=== PATIENT | female | born 1940 | race Caucasian/White ===

== ENCOUNTER 2024-02-09 07:24 | Day surgery (SDC) | payer OTHER, SELFPAY ==
[2024-02-09] VITALS (22 sets, daily range): BP systolic 131–184; BP diastolic 49–79; BMI 27.3
[2024-02-09] MEDS: LOW STRENGTH ASPIRIN 81 MG PO (08:53)
[2024-02-09] MEDS: NSS 230 ML IV (08:54)
--- NOTE | 2024-02-09 10:02 | ITS.CL.CATH ---
Hot Room Attendant - Catheterization
Cardiac Catheterization
Procedure Report:
CARDIAC CATHETERIZATION REPORT
Date of Procedure: 02/09/2024
Referring: Pedro Garcia MD
Indication: Severe symptomatic aortic stenosis
HEMODYNAMIC DATA
AO: 168/61
LV: 184/28
There is a 36 mmHg mean gradient across the aortic valve
LEFT VENTRICULOGRAPHY: Not performed
CORONARY ANGIOGRAPHY
Dominance: Right
Left Main: Mild calcification without stenosis
LAD: Trivial luminal irregularities
Circumflex: Trivial luminal irregularities
RCA: The RCA has moderate to severe calcification. There is 60-70% ostial RCA stenosis without pressure dampening. There are otherwise mild luminal irregularities in the RCA system
Closure Device: None-manual compression was used for hemostasis as the patient will require TAVR
Radiation (mGy): 94
DAP (cm2.Gy): 9.6
Fluoroscopy time: 4.1 minutes
CONCLUSIONS
1: Systemic hypertension
2: Moderate to severe aortic stenosis with mean gradient 36 mmHg
3. Single-vessel CAD as described-recommend medical therapy at this time
4. Proceed with TAVR evaluation
Copy to: Pedro Garcia MD, Chadwick Grant DO
Kush Sommer MD, [facility], [facility]
--- NOTE | 2024-02-09 13:28 | CONSULT.STRU ---
Consultation
-
Date/Time Consultation Requested: 02/09/2024
Date/Time Consultation Performed: 02/09/2024
Requesting Provider: Kush Sommer MD
Performing Provider: JESSICA Miranda
Reason for Consultation: Severe aortic stenosis/ TAVR evaluation
Patient History
Physicians
Family Physician: Chadwick Grant DO
Outpatient Caterpillar Mechanic: Pedro Garcia MD
Primary Caterpillar Mechanic: Pedro Garcia MD
History of Present Illness
Mrs. Whitmore is a very pleasant 83yo female with ESRD and severe aortic stenosis that underwent cardiac catheterization today. She has a history of a pericardial window December 15, 2023, history of PAF although not anticoagulated, HTN, anemia, gout and
hypothyroidism. She has been having trouble achieving dry weight at hemodialysis because of hypotension. She does note some fatigue and BARROW over the past few months. She denies peripheral edema, syncope or lightheadedness. She denies chest pain, PND
and orthopnea. She does complain of occasional palpitations. She has dialysis Tue-Tue-Tue at [facility]. She is followed by Dr. Bautista. Her echocardiogram on 01/12/2024 was notable for AV P MG 40 and ALFONSO 0.9. Moderate MAC and mild
MR. Her cardiac cath with non-obstructive CAD.
Reviewed the pathophysiology of aortic stenosis with the patient and her daughter. Explained the treatment options of SAVR and TAVR. Explained the TAVR evaluation process including CT TAVR scan, CT surgery consult and Heart Team discussion. Provided
with script and appointment for CT TAVR, Consult appointment with Dr. Frye and a copy of the TAVR education booklet with contact information. Allowed for and answered questions.
Past Medical History
Past Medical History: Atrial Fib (h/o PAF, states she was told she no longer has, no anticoagulation), BARROW, HTN, Hypothyroidism, Renal Failure (ESRD- Hemodialysis M-W-F, Polycystic kidney disease), Valvular Disease (Aortic Stenosis, moderate AI,
mild MR, trivial TR) and Other (Hiatal Hernia, gout)
Past Surgical History
Past Surgical History: Appendectomy, Cholecystectomy, Hysterectomy and Other (tubal ligation, pericardial window 11/2023, Right upper arm AV graft)
Dental History
Full Dentures
Family History
Mother: at Age
Father: at Age (78, CAD)
Family Medical History: Early CAD (Brother had MS at 57yo)
Social History
Alcohol: None
Drug: None
Tobacco: Former Smoker (Quit 1987)
Personal:
Living: Alone
Employment: Retired
Allergies
Allergy/AdvReac Type Severity Reaction Status Date / Time
amlodipine Allergy Unknown upset Verified 02/09/24 08:24
stomach
Home Medications
�Medication �Instructions �Recorded �Confirmed �Type
allopurinol 200 mg tablet 200 mg PO BID 02/09/24 02/09/24 History
aspirin 81 mg chewable tablet 81 mg PO DAILY 02/09/24 02/09/24 History
atorvastatin 10 mg tablet 10 mg PO HS 02/09/24 02/09/24 History
furosemide 20 mg tablet 20 mg PO BID 02/09/24 02/09/24 History
hydralazine 25 mg tablet 75 mg PO TID 02/09/24 02/09/24 History
levothyroxine 125 mcg tablet 125 mcg PO DAILY 02/09/24 02/09/24 History
(Synthroid)
loperamide 2 mg capsule 2 mg PO Q4H PRN stomach issues 02/09/24 02/09/24 History
metoprolol tartrate 50 mg tablet 50 mg PO BID 02/09/24 02/09/24 History
sucroferric oxyhydroxide 500 mg 500 mg PO TID 02/09/24 02/09/24 History
chewable tablet (Velphoro)
STS%
STS %: 7.47%
Review of Systems
-
History Source: Patient and Family
General: Reports Fatigue; Denies Fever, Weight Gain or Night Sweats
HEENT: Reports No Symptoms
Respiratory: Reports BARROW
Cardiac: Reports Palpitations; Denies Chest Pain, Nausea, Vomiting, Diaphoresis or Edema
Abdomen/GI: Reports Diarrhea (chronic, diverticulosis); Denies Reflux, Nausea or Vomiting
: Reports Other (ESRD, voids small amount in morning but then anuric)
Musculoskeletal: Reports No Symptoms
Skin: Reports No Symptoms
Neurological: Reports No Symptoms; Denies CVA or TIA
Vascular: Reports No Symptoms
Physical Exam
Vital Signs
Temp 97.8 F 02/09/24 13:20
Temp route: Oral 02/09/24 13:20
Pulse 58 02/09/24 13:15
Resp Rate 18 02/09/24 13:15
Blood pressure 156/73 02/09/24 13:17
Blood pressure extremity used: Left upper arm 02/09/24 08:00
Position: Lying 02/09/24 08:00
MAP (cuff-Kermit Monitor) 96 02/09/24 13:17
SaO2 98 02/09/24 13:09
Oxygen Mode of Delivery Room air 02/09/24 10:00
Can the patient verbally communicate their pain? Yes 02/09/24 13:20
Actual Weight 76.8 kg 02/09/24 08:27
Body Mass Index (BMI) 27.3 02/09/24 08:27
Labs
02/03/2024:
BUN/Creat: 21/3.92 GFR: 11
H/H: 11.2/ 34.1
Diagnostic Studies
Echocardiogram 01/12/2024:
CONCLUSIONS
1. There is mild concentric LVH. Normal LV function. EF 65 to 70% with grade
1 diastolic dysfunction
2. Severe aortic stenosis with mild to moderate aortic insufficiency
3. Trivial pericardial effusion
4. Left atrium is top normal in size and other chamber sizes are normal
Indications:
Nonrheumatic aortic (valve) stenosis with insufficiency, Essential (primary)
hypertension, Shortness of breath
Rhythm: Sinus
Portable Study:
Technical Quality: Good
Contrast: None
BP: 140 / 84
PROCEDURE
A complete Transthoracic Echocardiogram was performed utilizing two-dimensional
evaluation with color flow and spectral Doppler analysis.
FINDINGS
Left Ventricle
The left ventricle is normal in size. There is mild concentric LVH. Left
ventricular systolic function is normal with an estimated ejection fraction of
65 to 70%. There is grade 1 diastolic dysfunction.
Right Ventricle
Normal right ventricular size and function.
Left Atrium
The left atrium is top normal in size
Right Atrium
Normal right atrium.
Mitral Valve
Structurally normal mitral valve without significant stenosis. There is
trivial to mild mitral regurgitation. There is moderate mitral annular
calcification
Aortic Valve
The aortic valve is heavily thickened and calcified with a deformed and
restricted opening consistent with the presence of aortic stenosis. The peak
transaortic gradient is 64 mmHg and the mean gradient is 40 mmHg. Calculated
valve area 0.9 cm2 suggesting the presence of severe aortic stenosis. There is
mild to moderate aortic insufficiency
Tricuspid Valve
Structurally normal tricuspid valve without significant stenosis. There is
trivial tricuspid regurgitation. Estimated pulmonary artery pressure is 29
mmHg.
Pulmonic Valve
Structurally normal pulmonic valve without significant stenosis or
regurgitation.
Pericardium\\Pleura
There is a trivial circumferential pericardial effusion present
Aorta
Normal aortic root.
Other Finding
The inferior vena cava is normal in size
MEASUREMENTS (Male / Female) Normal Values
2D ECHO
LV Diastolic Diameter PLAX 4.3 cm 4.2 - 5.9 / 3.9 - 5.3 cm
LV Systolic Diameter PLAX 3.1 cm
IVS Diastolic Thickness 1.3 cm 0.6 - 1.0 / 0.6 - 0.9 cm
LVPW Diastolic Thickness 1.2 cm 0.6 - 1.0 / 0.6 - 0.9 cm
LV Relative Wall Thickness 0.6
RV Internal Dim ED PLAX 2.9 cm
LVOT Diameter 2.0 cm
M-MODE
Aortic Root Diameter MM 2.9 cm
LA Systolic Diameter MM 4.0 cm
LA Ao Ratio MM 1.4
AV Cusp Separation MM 1.2 cm
DOPPLER
AV Peak Velocity 401.5 cm/s
AV Peak Gradient 64.5 mmHg
AV Mean Gradient 39.9 mmHg
AV Velocity Time Integral 105.5 cm
AI Peak Velocity 502.2 cm/s
AI Peak Gradient 100.9 mmHg
AI Pressure Half Time 533.9 ms
LVOT Peak Velocity 118.1 cm/s
LVOT Peak Gradient 5.6 mmHg
LVOT Velocity Time Integral 30.7 cm
LVOT Stroke Volume 97.4 cm3
LVOT Stroke Volume Index 52.1 ml/m2 empty
LVOT Cardiac Index 3489.5 cm3/min
AV Area Cont Eq vti 0.9 cm2
AV Area Cont Eq pk 0.9 cm2
Mitral E Point Velocity 109.1 cm/s
Mitral A Point Velocity 140.8 cm/s
Mitral E to A Ratio 0.8
TR Peak Velocity 255.5 cm/s
TR Peak Gradient 26.1 mmHg
Right Ventricular Systolic Press 29.1 mmHg
Exam
General: Well Developed, Well Nourished, No Apparent Distress and Comfortable
HEENT: Normocephalic, Moist Mucous Membranes, PERRLA and EOMI
Neck: Trachea Midline
Respiratory: Clear; Negative Wheezes, Crackles or Rhonchi
Cardiac: S1/S2, Regular Rhythm and Murmur (Grade III/ systolic murmur)
GI: Soft, Non Tender, Non Distended and Normal Bowel Sounds
Rectal: Deferred by Provider
Skin: Warm and Dry
Neuro: AO x 3, No Motor Deficits and Nonfocal/Grossly Intact
Extremities: Pulses (+2 dp pulses bilaterally) and Other (right upper arm AV graft with good bruit and thrill); Negative Lower Level Edema
Psych: Calm
Assessment / Plan
-
Procedure Type:�Isolated AVR
PERIOPERATIVE OUTCOME ESTIMATE %
Operative Mortality 7.47%
Morbidity & Mortality 15%
Stroke 2.57%
Renal Failure NA
Reoperation 4.49%
Prolonged Ventilation 9.67%
Deep Sternal Wound Infection 0.062%
Long Hospital Stay (>14 days) 10.1%
Short Hospital Stay (<6 days)* 16%
Severe Aortic stenosis:
��������������� Continue evaluation for TAVR as outpatient
��������������� ESRD- hemodialysis M-W-, no need for follow up BMP
��������������� CT TAVR scan 02/28/2024 at
��������������� CT surgery consult with Dr. Frye 02/28/2024
��������������� Heart team discussion at [facility]
Full dentures- no need for dental clearance
Data Reviewed
-
EKG: Report Reviewed by me
Power Chisel Operator: Discussed with Physician
Echo: Report Reviewed by me and Discussed with Physician
Labs: Labs Reviewed by me
Old Records: Reviewed (Cardiology consult notes)
Total Time Spent with Patient (in minutes): 45
== END 2024-02-09 13:35 | disposition home or self-care (01) ==
LOC: CATH 07:24
PROVIDERS: ATTENDING PHYSICIAN Internal Medicine Cardiovascular Disease; FAMILY PHYSICIAN Family Medicine; OTHER PHYSICIAN Internal Medicine Cardiovascular Disease
DX: I08.3 Combined rheumatic disorders of mitral, aortic and tricuspid valves (principal); I25.10 Atherosclerotic heart disease of native coronary artery without angina pectoris; I25.84 Coronary atherosclerosis due to calcified coronary lesion; R06.09 Other forms of dyspnea; I10 Essential (primary) hypertension; I12.0 Hypertensive chronic kidney disease with stage 5 chronic kidney disease or end stage renal disease; N18.6 End stage renal disease; Z99.2 Dependence on renal dialysis; I31.39 Other pericardial effusion (noninflammatory)
CPT/HCPCS: 93458; C1894; Q9967

== ENCOUNTER → 2024-02-28 08:49 | Outpatient (REF) | payer OTHER, SELFPAY | LOC: RAD 08:49 | PROVIDERS: ATTENDING PHYSICIAN Nurse Practitioner Adult Health | DX: I35.0 Nonrheumatic aortic (valve) stenosis (principal) | CPT/HCPCS: 74174; 75572; Q9967 ==

== ENCOUNTER 2024-03-29 05:12 | Inpatient (IN) | payer OTHER, SELFPAY ==
[2024-03-20 11:55] VITALS: BMI 26.8
[2024-03-20 12:49] LABS: % Lymphocytes 23.7 % (20.5-51.1); % Neutrophils 56.1 % (42.2-75.2); Hematocrit 34.4 % (37.0-47.0); Hemoglobin 11.6 g/dL (12.0-16.0); Mean Corp Hgb Conc. 33.7 g/dL (33.0-37.0); Mean Corpuscular Hgb 34.1 pg (27.0-31.0); Mean Corpuscular Volume 101.2 fL (81.0-99.0); Mean Platelet Volume 10.9 fL (7.4-10.4); Platelet Count 124 10^3/uL (130-400); Red Cell Dist. Width 13.2 % (11.5-14.5); White Blood Cell Count 8.6 10^3/uL (4.8-10.8)
[2024-03-20 12:50] LABS: Urine Albumin 1+ (Neg - Trace); Urine Bilirubin Negative (Negative); Urine Character Clear (Clear); Urine Color Yellow; Urine Glucose Negative (Negative); Urine Ketone Negative (Negative); Urine Leukocyte Negative (Negative); Urine Nitrite Negative (Negative); Urine Occult Blood Negative (Negative); Urine Urobilinogen Negative (Neg - 1+)
[2024-03-20 12:50] LABS: % Basophils 0.4 % (0-2); % Eosinophils 11.4 % (0-6); % Immature Granulocytes 0.2 % (0-0.5); % Monocytes 8.2 % (1.7-9.3); Absolute Monocytes 0.7 10^3/uL (0.1-0.6); Absolute Neutrophils 4.8 10^3/uL (1.4-6.5); Nucleated Red Blood Cells % 0 %
[2024-03-20 13:00] LABS: INR 0.98; PT 12.8 Sec (11.4-14.6)
[2024-03-20 13:01] LABS: APTT 27.2 Sec (23.4-35.0)
[2024-03-20 13:15] LABS: NT-proBNP 16800 pg/ml
[2024-03-20 13:59] LABS: Glycohemoglobin (HgbA1c) 4.8 % (4.0-5.6)
[2024-03-20 14:11] LABS: AST (SGOT) 17 U/L (14-36); Albumin 4.1 g/dl (3.5-5.0); Alkaline Phosphatase 94 U/L (38-126); Blood Urea Nitrogen 37 mg/dl (7-17); Calcium 9.4 mg/dl (8.4-10.2); Carbon Dioxide 29 mmol/L (22-30); Chloride 99 mmol/L (98-107); Direct Bilirubin 0.3 mg/dl (0.0-0.4); Estimated Creatinine Clearance 8 ml/min; Glucose 94 mg/dl (70-99); Potassium 4.5 mmol/L (3.5-5.1); Sodium 140 mmol/L (135-145); Total Bilirubin 0.5 mg/dl (0.2-1.3); Total Protein 6.4 g/dl (6.3-8.2); eGFR 9.31
--- NOTE | 2024-03-20 14:36 | CM ---
spoke to pt and daughter in PAT's, we discussed TAVR preop teaching including driving and lifting restrictions. she is prev indep, lives alone in an apt with no steps to enter. her daughter will be staying with her after dc. she has a cane and a
walker to use if needed. she goes for HD MWF @ 930am at [facility]. she drives herself there. she has the TAVR educ book, soap and instructions. plan is for TAVR 03/29, cm role explained and all questions answered.
[2024-03-20 14:40] LABS: ALT (SGPT) < 10 U/L (0-35)
[2024-03-20 15:00] LABS: Urine Squamous Cell >30 /LPF (Few)
[2024-03-20 15:03] LABS: Urine Bacteria Few (Negative); Urine Red Blood Cell 0-2 /HPF (0-2)
[2024-03-29] VITALS (19 sets, daily range): BP systolic 93–167; BP diastolic 36–92; BMI 27.0
--- NOTE | 2024-03-29 06:00 | PTCARENOTE ---
Pt arrived for TAVR this AM. Tele- SR. Oriented pt to unit. Pt clipped and prepped w/ CHG wipes. IV placed. ABO2 drawn and sent. Admission questions completed. Pt ambulatory in room w/ steady gait. Limb alert placed for R arm AV graft. Neurological
check WNL. Currently in bed; call glenn w/in reach.
[2024-03-29 08:02] LABS: ACT-LR - POC 242 Seconds (116-155)
--- NOTE | 2024-03-29 08:21 | W.CVOR.SURPR ---
CVOR Surgeon Immed Pre Op
-
I have examined this patient prior to performance of the scheduled procedure.
The patient's condition is unchanged from the time of the dictated/written History and
Physical and the patient is able to undergo the scheduled procedure.
--- NOTE | 2024-03-29 08:21 | W.IMMPOSTOP ---
Surgical Immed Post Op Note
-
[id number]
STRUCTURAL HEART PROCEDURE NOTE: TAVR
Preoperative Dx:
Severe aortic stenosis (P/M: 64.5/39.9)
ESRD on HD q MWF
Polycystic kidney disease
PAF - not on AC
Hypothyroidism
Gout
Anemia
Diverticulosis
Hiatal Hernia
Pancreatic cyst
Postoperative Dx:
Same
Lxsej-ff-buufdps combined systolic/diastolic CHF w/ elevated LVEDP at 28mmHg
Procedures:
1) L CFV access w/ fluoroscopic guidance, micropuncture technique, 6Fr sheath placement
2) L STRATEGIC CLIENT EXECUTIVE access w/ tactile & fluoroscopic guidance, micropuncture technique, 6Fr sheath placement
3) Placement of temporary RV pacing wire w/ threshold testing
4) Placement of pigtail catheter in RCC w/ limited aortography & confirmation of co-planar valve deployment angle
5) R STRATEGIC CLIENT EXECUTIVE access w/ tactile & fluoroscopic guidance, micropuncture technique, 6Fr sheath placement, angiography
6) Perclose placement x 2 into R STRATEGIC CLIENT EXECUTIVE, 8Fr sheath placement
7) Dilation of R ileofemoral system w/ subsequent placement of Berrios E-sheath
8) Wire purchase across stenotic AV (AL-1, soft-tip straight, table J-wire, LVEDP assessment)
9) R TF TAVR w/ placement of 23mm RYLEE 3 valve
10) Completion aortography
11) Completion TTE (mean gradient 5mmHg, trace AI)
12) Removal of valve delivery system & Berrios E-sheath w/ R STRATEGIC CLIENT EXECUTIVE mgmt w/ perclose sutures x 2; manual pressure
13) Completion R ileofemoral angiography
14) L femoral angiography
15) Removal of L STRATEGIC CLIENT EXECUTIVE 6Fr sheath w/ mgmt w/ 6Fr angioseal; manual pressure
16) Removal of temporary pacing wire & L CFV sheath w/ mgmt w/ manual pressure
Preventive Maintenance Engineer:
Dr. Ron Sommer
Cardiac Surgeon:
Dr. Aren Frye
Anesthesia:
MAC & local to B/L groins
Implants:
Berrios [employer]iences 23mm RYLEE 3 valve; SN [id number]
Perclose x 2
6Fr angioseal x 1
Cath Data:
Start: 0732hrs, Deploy: 0804hrs, End: 0818hrs
mGy: 183.02, DAP: 20.5590, Contrast: 78mL
Post TTE: mean gradient 5mmHg, trace AI
Complications:
None
Condition:
Stable/guarded to recovery
--- NOTE | 2024-03-29 08:37 | W.PN.UPDATE ---
Update Note
Progress Note Update
Reviewed Ms. Whitmore with the heart team in the preTAVR SDM meeting and confirmed a 23 mm S3 via right transfemoral access. Patient will resume aspirin post TAVR. LVEDP 28mmHg. #23 mm S3 (serial# [id number]) successfully deployed via right
transfemoral access. Post implant MG 5mmHg.
--- NOTE | 2024-03-29 08:45 | ITS.CL.TAVR ---
Digital Pre Press Operator - TAVR Report
TAVR PRocedure
Procedure Report:
TRANSCATHETER AORTIC VALVE REPLACEMENT REPORT
�
Date: 03/29/2024
Referring physician: Pedro Garcia MD
�
Operators:
paper bag machine operator: Kush Sommer MD
Cardiac surgeon: Aren Frye MD
�
Procedure:
Conscious sedation was provided by anesthesia. Using a micropuncture technique, 6F sheaths were placed in the LFA and LFV. A transvenous pacemaker was advanced to the RV and excellent thresholds obtained. A pigtail catheter was advanced to the
aortic root where low volume injections were performed to identify an appropriate angle for valve deployment deployment. Access was then obtained in the right femoral artery using a micropuncture technique. A 6Fsheath was placed and angiography
confirmed a PLANER STONE puncture site. Heparin 3000 units was administered.��Two perclose sutures were preset using the preclose technique. An 8F sheath was placed in the LFA and a Confida wire advanced into the thoracic aorta. The ileofemoral vessels were
dilated using the Berrios dilator. An Berrios E sheath was advanced into the descending 23�mm Candice S3 valve was then advanced through the E sheath and prepared for transit around the aortic arch. The valve was carefully advanced across the aortic
annulus and deployed during rapid ventricular pacing. Echocardiography and aortography confirmed an excellent result with mean gradient 5 mmHg and trace AI. The valve deployment system was removed. The Berrios E sheath was then removed and
hemostasis obtained with the two perclose sutures. Final angiography demonstrated no evidence of ileofemoral dissection/perforation and good runoff below the common femoral artery.��The pacemaker was removed and the LFV sheath removed with manual
compression for hemostasis. The LFA sheath was removed using a 6 F angioseal.
�
Radiation (mGy): 183
DAP (cm2.Gy)): 20.6
Fluoroscopy time: 8.8 minutes
�
Conclusions: Successful placement of�23�mm Candice S3 aortic valve via right transfemoral approach with no acute complication.
�
Copy: Pedro Garcia MD, Chadwick Joseph MD
�
�
[2024-03-29 09:58] LABS: ACT-LR - POC > 397 Seconds (116-155)
--- NOTE | 2024-03-29 10:28 | CM ---
Addendum entered by NIECY Jimenez 03/29/24 12:17:
Met w/ patient at bedside. She reports that she is feeling well.
Will cont. to follow.
Original Note:
Patient in OR today for TAVR procedure.
Reviewed initial assessment. Pt. resides alone in a private apartment without any steps to enter. Functionally, patient is indep. w/ ADLs, mobility without the use of any assisted device.
Pt. is on hemodialysis MWF @ [facility].
Anticipated DC plan is for home, no needs.
Will assess need for VN.
Will cont. to follow.
--- NOTE | 2024-03-29 10:29 | PTCARENOTE ---
Received patient from the dairy and food laboratory assistant at 10:00. Patient drowsy, but awakes easily. BP 134/56, SB/SR 50s-60s with first degree AV block and new BBB, 96% on room air. Right femoral site clean, dry and intact; no hematoma-- little petechia. Left femoral
site clean, dry and intact; no hematoma. Bilateral weak pedal pulses. Bilateral lower extremities pink and warm. Homeostatsis on all sites 8:35. Neuro- 2mm pupils, brisk. Patient agrees to call with any chest pain. Call elizabeth within reach.
[2024-03-29] MEDS: LOW STRENGTH ASPIRIN PO (12:30)
[2024-03-29] MEDS: SYNTHROID PO (12:31)
--- NOTE | 2024-03-29 14:17 | W.CON.NEPH ---
Consultation
-
Date/Time Consultation Requested: 03/29/24 1300
Date/Time Consultation Performed: 03/29/24 1400
Requesting Provider: Dr. Biggs
Performing Provider: Dr. Quan
Reason for Consultation: ESRD
Medical History
-
Chief Complaint: TAVR
History of Present Illness:
This is a an 84-year-old female who has polycystic kidney disease resulting in end-stage renal disease about a year and a half ago. This apparently occurred during a pericardial window hospitalization. Since then she has tolerated dialysis without
issue, dialyzing via a right upper extremity AV graft. She does state that she typically dialyzes 3 and half hours and that her ultrafiltration is typically around 2 or 2-1/2 kg. Any more than that and she does develop cramping. She had been
follow-up for severe aortic stenosis ultimately requiring TAVR. She was admitted today for TAVR which she underwent without complication. Her blood pressures have remained stable on a multidrug regimen.
Past Medical History
ADPKD, gout, hypertension, hypothyroidism, hyperphosphatemia, aortic stenosis, TAVR, paroxysmal atrial fibrillation, irritable bowel, diverticulosis, pericardial effusion with pericardial window, autoimmune thyroiditis, pyelonephritis, polycystic
liver, right upper extremity AV graft, appendectomy, cholecystectomy, hysterectomy
Social History
Tobacco: Former Smoker
Alcohol: None
Family History
Multiple members with polycystic kidney disease including her brother and nearly all of her children/nieces/nephews
Allergies / Home Medications
Allergy/AdvReac Type Severity Reaction Status Date / Time
amlodipine Allergy Unknown upset Verified 03/19/24 15:28
stomach
�Medication �Instructions �Recorded �Confirmed �Type
allopurinol 200 mg tablet 200 mg PO DAILY 02/09/24 03/19/24 History
aspirin 81 mg chewable tablet 81 mg PO DAILY 02/09/24 03/29/24 History
atorvastatin 10 mg tablet 10 mg PO HS 02/09/24 03/19/24 History
furosemide 20 mg tablet 20 mg PO SUTUTHSA 02/09/24 03/19/24 History
hydralazine 25 mg tablet 50 mg PO TID 02/09/24 03/19/24 History
levothyroxine 125 mcg tablet 125 mcg PO DAILY 02/09/24 03/19/24 History
(Synthroid)
loperamide 2 mg capsule 2 mg PO Q4H PRN stomach issues 02/09/24 03/19/24 History
metoprolol tartrate 50 mg tablet 50 mg PO BID 02/09/24 03/29/24 History
sucroferric oxyhydroxide 500 mg 500 mg PO TID 02/09/24 03/19/24 History
chewable tablet (Velphoro)
Vitamin D3 1 tab PO DAILY 03/19/24 03/19/24 History
lorazepam 0.5 mg tablet 0.5 mg PO DAILY PRN anxeity 03/19/24 03/19/24 History
Review of Systems
-
No chest pain or shortness of breath
All other systems: Negative unless noted
Physical Exam
Vital Signs
Vital Signs
Temp Pulse Resp BP Pulse Ox
97.4 F 54 18 124/56 100
03/29/24 11:48 03/29/24 10:15 03/29/24 11:48 03/29/24 10:15 03/29/24 11:48
Lab Results
WBC 8.6 10^3/uL (4.8-10.8) 03/20/24 12:15
RBC 3.40 10^6/uL (4.20-5.40) L 03/20/24 12:15
Hgb 11.6 g/dL (12.0-16.0) L 03/20/24 12:15
Hct 34.4 % (37.0-47.0) L 03/20/24 12:15
Plt Count 124 10^3/uL (130-400) L 03/20/24 12:15
Sodium 140 mmol/L (135-145) 03/20/24 12:15
Potassium 4.5 mmol/L (3.5-5.1) 03/20/24 12:15
Chloride 99 mmol/L (98-107) 03/20/24 12:15
Carbon Dioxide 29 mmol/L (22-30) 03/20/24 12:15
BUN 37 mg/dl (7-17) H 03/20/24 12:15
Creatinine 4.5 mg/dL (0.6-1.0) H* 03/20/24 12:15
eGFR 9.31 03/20/24 12:15
Glucose 94 mg/dl (70-99) 03/20/24 12:15
Calcium 9.4 mg/dl (8.4-10.2) 03/20/24 12:15
Tjn-X-Ofuemtfrehe Pept 91689 pg/ml 03/20/24 12:15
Albumin 4.1 g/dl (3.5-5.0) 03/20/24 12:15
Physical Exam
Patient is awake alert oriented and in no distress. Mood and affect were pleasant, insight and judgment were good. Pupils are equal round and reactive to light, extraocular movements are intact, sclera were anicteric. Hearing was normal, ears and
nose are intact. Oropharynx was clear. Neck was supple with trachea midline and no thyromegaly. Heart was regular rate and rhythm without rubs. Lower extremities without edema. Lungs were clear to auscultation bilaterally and with normal
excursion. Abdomen was soft, nontender, with normal active bowel sounds, and no hepatosplenomegaly. Skin was without rash and with normal turgor. AV graft in right upper arm with good thrill and bruit
Data Reviewed
-
Radiology: Image Personally Visualized and interpreted (Chest x-ray on March 20, 2024 by my reading shows no acute disease)
Medical Tests (Nuc Med, Echo etc): Image Personally Visualized and interpreted (EKG on March 29, 2024 by my reading shows sinus bradycardia first-degree AV block left axis deviation incomplete left bundle branch block left ventricular hypertrophy
with repolarization)
Labs: Labs Reviewed by me
Old Records: Reviewed
Assessment/Plan
-
Assessment
ADPKD
ESRD
TAVR
P A-fib
Hypothyroidism
Gout
Plan
We will plan for dialysis tomorrow morning per her usual schedule
Outpatient medications including phosphate binders may all be continued from a renal perspective
[2024-03-29] MEDS: LASIX 20 MG IV (14:40)
[2024-03-29] MEDS: ANCEF 5 IV (14:41)
[2024-03-29] MEDS: FLUSH (NSS) 1 FLUSH IV (14:41)
[2024-03-29] MEDS: ANCEF 10 IV ×2 (14:48→14:49)
[2024-03-29] MEDS: LOPRESSOR 50 MG PO (19:45)
[2024-03-29] MEDS: LIPITOR 10 MG PO (22:33)
--- NOTE | 2024-03-29 23:23 | PTCARENOTE ---
Pt rec'd at change of shift in bed. Pt stated she felt sharp pain in right groin which quickly passed. right femoral site with DDI. no active bleeding or hematoma present. PA notified evaluated groins on rounds, no hematoma present. B/l groin sites
remain soft and dry at present.
pt aware of HD scheduled for 0700, IVAN with + bruit and thrill
[2024-03-30] VITALS (23 sets, daily range): BP systolic 100–177; BP diastolic 52–80; BMI 27.3
--- NOTE | 2024-03-30 05:36 | W.PN.CT ---
Addendum entered and electronically signed by Aren Frye MD 03/30/24 14:48:
I saw and examined the patient.
The PA's note was reviewed and I agree with the note.
Comment:
Postop day #1 status post right transfemoral TAVR with placement of 23 mm RYLEE 3 valve
Doing well, no complaints. Echocardiogram today with LVEF of 55 to 60% with mild aortic regurgitation and peak/mean gradients of 15/9 mmHg
Follow-up right groin ultrasound per cardiology recommendation, groin exam benign (patient with reported acute right femoral pain late last night that quickly resolved)
Aspirin only anticoagulation, resume home medications
Out of bed I-S ambulate
Discharge planning for potentially later today
Original Note:
Today's Communication / Plan
-
-pod #1
-no issues overnight
-diuresed with 20 iv Lasix on 03/29 (UO unmeasured, but according to pt, significantly more than usual amount)
-HD today
-nsr 60s overnight. No johan or pauses. Has pre-existing 1st degree AVB
-hypertensive 160s this am - continue BB
-labs pending
-Echo today
-current meds (ASA, Lipitor, Lasix qod, Lopressor 50 bid)
-encourage IS, OOB
-possible d/c home
Assessment / Plan
-
- Severe symptomatic - s/p R TF TAVR w/ placement of 23mm RYLEE 3 valve on 03/29/24, pod #1
- Gsfrj-re-anqxmpd combined systolic/diastolic CHF w/ elevated LVEDP at 28mmHg
- Post TTE: mean gradient 5mmHg, trace AI
- ESRD on HD q MWF
- Polycystic kidney disease
- PAF - not on AC
- Hypothyroidism
- Gout
- Anemia
- Diverticulosis
- Hiatal Hernia
- Pancreatic cyst
- Pre-existing 1st degree AVB
Discussed patient care with: Nursing and Care Team
Subjective
-
Date of Service: March 30, 2024
Objective Data
-
PT 12.8 Sec (11.4-14.6) 03/20/24 12:15
INR 0.98 03/20/24 12:15
APTT 27.2 Sec (23.4-35.0) 03/20/24 12:15
Vital Signs
Vital Signs
Temp Pulse Resp BP Pulse Ox
98.7 F 73 20 167/56 97
03/29/24 22:35 03/29/24 22:35 03/29/24 22:35 03/29/24 22:35 03/29/24 22:35
CT Intake/Output/Weight
03/29/24 03/29/24 03/30/24
06:59 18:59 06:59
Intake Total 550 / 700 150 / 700
Balance 550 / 700 150 / 700
SaO2: 97
--- NOTE | 2024-03-30 07:30 | W.PN.CD ---
Today's Communication / Plan
-
Resume home medications.
Post TAVR TTE.
Right groin US.
Discharge planning.
Impression / Plan
-
Impression/Plan: 84 y/o female with PKD and ESRD on PASSENGER FLAGMAN, PAF, HTN, HLD, CAD and severe admitted for elective TAVR.
#Severe
-Chronic.
-S/P #23 Berrios CANDICE S3 TAVR via right femoral approach.
-Access sites are C/D/I.
-Telemetry shows no significant bradycardia/pauses.
-Antithrombotic therapy with aspirin.
-Post TAVR echo pending.
-Right groin US to RSFA pseudoaneurysm.
#PAF
-Currently in NSR.
-Rate control with metoprolol
-CHADS2-Vasc = 6 (CHF, HTN, Age x2, vascular disease, female gender).
-Not on anticoagulation.
#ESRD
-Chronic, stable.
-Managed by nephrology.
#HTN
-Chronic, stable.
-Resume home medications this morning.
#CAD
-Chronic, stable.
-Cath shows ostial RCA disease.
-Primary prevention with metoprolol, atorvastatin, aspirin.
#Dispo
-IVU status.
-PASSENGER FLAGMAN per nephrology.
-Discharge planning.
Subjective/Interval History:
TAVR yesterday.
Acute right femoral pain late last night, resolved quickly. No hematoma/bruit per nursing report.
DATA:
TAVR, 03/29/2024:
Conclusions: Successful placement of�23�mm Candice S3 aortic valve via right transfemoral approach with no acute complication.
Physical Exam
Vital Signs/Labs
Vital Signs
Temp Pulse Resp BP Pulse Ox
37.2 C 75 18 152/68 97
03/30/24 05:00 03/30/24 05:00 03/30/24 05:00 03/30/24 04:57 03/30/24 05:00
03/28/24 03/29/24 03/30/24
11:59 11:59 11:59
Actual Weight 75.9 kg 76.7 kg
PT 12.8 Sec (11.4-14.6) 03/20/24 12:15
INR 0.98 03/20/24 12:15
APTT 27.2 Sec (23.4-35.0) 03/20/24 12:15
03/20/24
12:15
Waj-F-Uzscmjumslx Pept [id number]
Physical Exam
Constitutional: No acute distress and Comfortable
EENT: Anicteric and Moist mucous membranes
Cardiovascular: Rhythm & rate is regular, Pedal edema is absent, JVD pressure is normal, S1S2 is normal and Murmur/rub/gallop absent
Respiratory: Respiratory effort normal, Lungs clear to auscul., Wheeze Absent, Crackles Absent and Rhonchi Absent
GI: Soft, Distention absent, Flat, Non tender and Normal bowel sounds
Neuro/Psych: AO x 3
Other: Cath Site (Bilateral femoral access sites are C/D/I. No obvious hematoma or bruit.)
Data Reviewed
-
Date of Service: March 30, 2024
Medical Decision Making: Reviewed Test Results, Independent Historian Assessment and Test Interpretation
EKG: Tracing Personally Visualized and interpreted and Report Reviewed by me
Echo: Report Reviewed by me
X-Ray/CT/US/MRI/NUC/PET: Image Personally Visualized and interpreted and Report Reviewed by me
Medical Tests (PFT, Pathology etc): Report Reviewed by me
Labs: Labs Reviewed by me
Old Records: Reviewed
[2024-03-30 08:35] LABS: Hematocrit 30.6 % (37.0-47.0); Hemoglobin 10.4 g/dL (12.0-16.0); Mean Corpuscular Hgb 34.1 pg (27.0-31.0); Mean Corpuscular Volume 100.3 fL (81.0-99.0); Mean Platelet Volume 10.8 fL (7.4-10.4); Platelet Count 103 10^3/uL (130-400); Red Blood Cell Count 3.05 10^6/uL (4.20-5.40); Red Cell Dist. Width 12.6 % (11.5-14.5); White Blood Cell Count 9.4 10^3/uL (4.8-10.8)
--- NOTE | 2024-03-30 08:56 | W.PN.NEPH.HD ---
Assessment
-
Patient seen on dialysis
Systolic blood pressure stable with current UF
For discharge today
Progress Note - Hemodialysis
-
Date of Service: March 30, 2024
Duration: 30 minutes and 3 hours
Potassium Bath: 2
Calcium Bath: 2.5
Opti-Dialyzer: 160
Ultrafiltration: Other (1 kg)
Blood Flow: 400
Dialysate Flow: 600
Heparin: 500 x 2
EPO: None
[2024-03-30 09:13] LABS: Blood Urea Nitrogen 45 mg/dl (7-17); Calcium 8.8 mg/dl (8.4-10.2); Carbon Dioxide 24 mmol/L (22-30); Chloride 102 mmol/L (98-107); Estimated Creatinine Clearance 8 ml/min; Glucose 94 mg/dl (70-99); Potassium 4.7 mmol/L (3.5-5.1); Sodium 139 mmol/L (135-145); eGFR 7.96
--- NOTE | 2024-03-30 09:37 | W.DCSUMMARY ---
Discharge Summary
Discharge Data
Date of Admission: 03/29/24
Date of Discharge: 03/30/24
-
Pending Results: No
Hospital Course
Primary care physician: Chadwick Grant
Outpatient extension agent: Pedro Garcia
Inpatient consultants: [facility], Nephrology
Procedures:
1. TAVR
Primary Diagnosis:
1. severe aortic stenosis
Secondary Diagnoses:
1. ESRD on HD q --
3. Polycystic kidney disease
4. PAF - not on AC
5. Hypothyroidism
6. Gout
7. Anemia
8. Diverticulosis
9. Hiatal hernia
10. Pancreatic cyst
11. Ljuis-kk-brcfbmx combined systolic/diastolic CHF w/ elevated LVEDP at 28mmHg.
HPI: 84-year-old female was electively admitted on 03/29/2024 for TAVR due to severe aortic stenosis
Hospital course: Patient underwent R TF TAVR #23mm RYLEE [address] Aren Frye and Kush Sommer. Due to elevated LVEDP, patient was given 20 mg of IV Lasix postprocedure. Nephrology was consulted to continue dialysis treatment on
03/30/2024. Patient had complained of right groin pain during the night and and right groin ultrasound ordered by cardiology was negative for pseudoaneurysm. Predischarge echocardiogram reported an EF of 55 to 60% with AV gradients of 15/9 mmHg, and
mild AI. Patient is stable for discharge to home
Home medication changes:
Discharge Plan
-
Discharge Diagnosis/Procedures: TF-TAVR
Diet: Low Cholesterol and 2 Gram Sodium
Activity: As tolerated
Driving Restrictions: No driving for 1 week
Bathing Restrictions: OK to Shower
Others Tests: 30 Day Follow Up Echocardiogram: 05/01/2024 at 10:40am in Dr. Garcia's office.
Other Services: Cardiac Rehab
Wound Care: Please do not apply lotions, creams or powders to groin areas. Please monitor for increased pain, redness, swelling or drainage. Notify your doctor if any occur.
Specialty Instructions: Weigh Daily- Call MD for wt gain/loss 3 lbs overnight/5 lbs in 1 week
Referrals:
Pedro Garcia MD [Active] - 05/15/24 2:20 pm
UNKNOWN - PT NOT,INTERVIEWE [Unknown Provider] -
Prescriptions:
New
acetaminophen 325 mg Tablet
650 mg PO Q4HPRN PRN (Reason: BANG, mild pain, or fever >101F) Qty: 0 0RF
Continued
loperamide 2 mg Capsule
2 mg PO Q4H PRN (Reason: stomach issues)
atorvastatin 10 mg Tablet
10 mg PO HS
hydralazine 25 mg Tablet
50 mg PO TID
levothyroxine [Synthroid] 125 mcg Tablet
125 mcg PO DAILY
metoprolol tartrate 50 mg Tablet
50 mg PO BID
aspirin 81 mg Tablet,Chewable
81 mg PO DAILY
furosemide 20 mg Tablet
20 mg PO SUTUTHSA
allopurinol 200 mg Tablet
200 mg PO DAILY
lorazepam 0.5 mg Tablet
0.5 mg PO DAILY PRN (Reason: anxeity)
Velphoro 500 mg Tablet,Chewable
500 mg PO TID Qty: 0 0RF
Vitamin D3
1 tab PO DAILY Qty: 0 0RF
Discharge Orders:
Discharge Patient (As Directed); Ordered 03/30/24
Ordered By: Florencia Dsouza
Care Plan Goals
Care Plan Goals:
Problem: Readiness for enhanced knowledge related to diagnosis and treatment plan
Goal: Understand your diagnosis and treatment plan needs, including medications if applicable.
Instructions: Know your diagnosis, underlying causes and treatment plan options, including medications if applicable. Consult with your health care team to learn about your diagnosis and treatment plan, including medications if applicable.
Discharge Date and Time
Print Language: [place]
--- NOTE | 2024-03-30 09:54 | PTCARENOTE ---
Received patient at change of shift. Right and left groin sites clean, dry, and intact. Little petechiae, no hematoma. BP 177/63, SR 60s with 1st degree block, 97% on room air. Getting set up for dialysis. Full assessment and meds after. Call elizabeth
within reach.
--- NOTE | 2024-03-30 11:54 | CM ---
CM following for DC planning needs.
Met w/ patient at bedside while she was receiving hemodialysis.
Pt. reports that she is feeling well and is hopeful for DC soon.
Dtr. to transport home.
Reviewed post op MD appointments, call from CT RN.
Call to [facility], to notify that patient will return on Tuesday.
Plan is for home, no needs.
CM to cont. to follow.
[2024-03-30] MEDS: LOW STRENGTH ASPIRIN 81 MG PO (12:30)
[2024-03-30] MEDS: FEOSOL 325 MG PO (12:30)
[2024-03-30] MEDS: SYNTHROID 125 MCG PO (12:30)
[2024-03-30] MEDS: FLUSH (NSS) 1 FLUSH IV (12:31)
[2024-03-30] MEDS: LOPRESSOR 50 MG PO (12:35)
== END 2024-03-30 15:51 | disposition home or self-care (01) | DRG 266 ==
LOC: IVU 05:12
PROVIDERS: Physician Assistant Medical; Specialist; ADMITTING PHYSICIAN Thoracic Surgery (Cardiothoracic Vascular Surgery); CONSULT PHYSICIAN Specialist; FAMILY PHYSICIAN Family Medicine
PROC: 5A1D70Z Performance of Urinary Filtration, Intermittent, Less than 6 Hours Per Day (ICD-10-PCS; 2024-03-30)
PROC: 02RF38Z Replacement of Aortic Valve with Zooplastic Tissue, Percutaneous Approach (ICD-10-PCS; 2024-03-30)
DX: I35.0 Nonrheumatic aortic (valve) stenosis (principal); I50.43 Acute on chronic combined systolic (congestive) and diastolic (congestive) heart failure; N18.6 End stage renal disease; I13.2 Hypertensive heart and chronic kidney disease with heart failure and with stage 5 chronic kidney disease, or end stage renal disease; Q61.2 Polycystic kidney, adult type; K86.2 Cyst of pancreas; I48.0 Paroxysmal atrial fibrillation; M10.9 Gout, unspecified; I25.10 Atherosclerotic heart disease of native coronary artery without angina pectoris; D63.1 Anemia in chronic kidney disease; K44.9 Diaphragmatic hernia without obstruction or gangrene; K57.30 Diverticulosis of large intestine without perforation or abscess without bleeding; E03.9 Hypothyroidism, unspecified; Z79.82 Long term (current) use of aspirin; Z79.899 Other long term (current) drug therapy; Z87.891 Personal history of nicotine dependence; Z99.2 Dependence on renal dialysis
CPT/HCPCS: 93308; 33361; 36415; 71045; 71046; 80048; 80053; 81003; 81015; 82248; 83036; 83880; 85025; 85027; 85347; 85610; 85730; 86850; 86900; 86901; 86920; 87070; 93005; 93306; 93321; 93325; 93926; C1760; C1769; C1894; G0257; P9047; Q9967

== ENCOUNTER 2024-11-22 06:50 | Day surgery (SDC) | payer OTHER, SELFPAY | END 2024-11-22 09:31 | disposition home or self-care (01) | LOC: CATH 06:50 | PROVIDERS: ATTENDING PHYSICIAN Internal Medicine Cardiovascular Disease; FAMILY PHYSICIAN Family Medicine; OTHER PHYSICIAN Internal Medicine Cardiovascular Disease | DX: I08.3 Combined rheumatic disorders of mitral, aortic and tricuspid valves (principal); I70.0 Atherosclerosis of aorta; I50.9 Heart failure, unspecified; Z79.02 Long term (current) use of antithrombotics/antiplatelets; I11.0 Hypertensive heart disease with heart failure; I25.10 Atherosclerotic heart disease of native coronary artery without angina pectoris; Z79.52 Long term (current) use of systemic steroids | CPT/HCPCS: 93312; 93320; 93325 ==

== ENCOUNTER → 2024-11-27 13:01 | Outpatient (REF) | payer OTHER, SELFPAY | LOC: RAD 13:01 | PROVIDERS: ATTENDING PHYSICIAN Student in an Organized Health Care Education/Training Program | DX: I35.0 Nonrheumatic aortic (valve) stenosis (principal) | CPT/HCPCS: 75572; Q9967 ==

== ENCOUNTER 2024-12-25 07:04 | Day surgery (SDC) | payer OTHER, SELFPAY ==
[2024-12-25] VITALS (22 sets, daily range): BP systolic 109–171; BP diastolic 41–92; BMI 26.5
[2024-12-25 10:26] LABS: ACT-LR - POC 269 Seconds (116-155)
[2024-12-25 10:46] LABS: ACT-LR - POC 274 Seconds (116-155)
--- NOTE | 2024-12-25 11:40 | ITS.CL.PN ---
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
Procedure
Procedure Note:
CARDIAC CATHETERIZATION REPORT
Date of Procedure: 12/25/2024
Referring: Dr. Pedro Garcia MD
Indication: heart failure status post-TAVR, progressive atypical angina with known obstructive CAD
PROCEDURE(S)
1. right heart catheterization
2. left heart catheterization
3. coronary angiography
ACCESS
1. 6F right femoral artery (closure: Angioseal x1)
2. 6F right femoral vein (closure: manual hemostasis)
CATHETERS
1. 6F [place]
2. 6F AR2
3. 6F JL4
4. 6F [place] guide
MODERATE SEDATION: 60 minutes of moderate sedation was utilized. An independent medical device sales consultant was present to assist with and help manage the patient's level of consciousness and physiologic status.
HEMODYNAMIC DATA
LV 176/3 (EDP 16) mmHg
AO 196/69 (mean 122) mmHg
RA 7 mmHg
RV 39/4 (EDP 10) mmHg
PA 40/16 (mean 26) mmHg
PCWP 12 mmHg
SaO2 94.0%
SvO2 65.8%
Hb 9.8 g/dL
CO/CI 5.97/3.33 L/min/m2
SVR 1541 dsc*-5
PVR 2.3 [place] units
Aortic valve study: mean gradient 19.84 mmHg at heart rate 67 bpm giving SVI of 49.7 mL/m2 and ALFONSO or 1.30 cm2
Simultaneous RV/LV pressure tracings with respirophasic concordance
CORONARY ANGIOGRAPHY
Dominance: Right
LM: large, normal
LAD: large vessel giving rise to a small D1 and moderate caliber D2. There are mild luminal irregularities only.
LCx: moderate caliber vessel giving rise to a small high-rising OM1, moderate caliber branching OM2, and small LPL branch. There are mild luminal irregularities only.
RCA: large vessel giving rise to a moderate caliber RPDA and several small RPL branches. There is a 90% ostial stenosis and otherwise mild disease.
IVUS-guided PCI with FANY to ostial RCA
The decision was made to intervene on the ostial RCA. Heparin is given to achieve ACT greater than 300. A Run[place] coronary wire was placed in the distal RPL and initial lesion preparation performed with serial dilation of a 2.0 mm semi-compliant
balloon. There was observed to be mild improvement in the lesion but considerable residual recoil. IVUS was then performed demonstrating a 3.5 mm reference vessel diameter and minimal calcification. Further lesion preparation was performed with a
3.5 NC balloon, with full expansion but again with residual recoil noted. A 3.5 x 18 mm [place] drug-eluting stent was deployed at 16 daryn followed by flaring at the ostium to 20 daryn with the stent balloon. IVUS was repeated demonstrating
excellent stent sizing and apposition other than a small area of underexpansion at the initial lesion site. Post dilation was this performed with a 3.75 mm NC balloon taken to 20 daryn across the ostium. Of note: throughout the procedure the patient
had significant recapitalization of her symptoms whenever flow was obstructive to the RCA. Final angiographic result was excellent. The groin was closed with Angioseal. The patient was loaded with 600 mg of Plavix.
RADIATION: dose 612 mGy; DAP 52 Gy*cm2; fluoroscopy time 39.5 min
CONCLUSIONS
1. Mildly elevated biventricular filling pressures, mildly elevated pulmonary artery pressure, and normal cardiac output
2. Aortic valve study with moderately elevated gradients consistent with recent non-invasive studies (mean gradient 19.8 mmHg giving ALFONSO 1.30 cm2 with SVI of 49.7 mL/m2)
3. Simultaneous RV/LV pressure tracings with respirophasic concordance not suggestive of constrictive cardiomyopathy (furthermore, RHC chamber pressures were neither elevated nor equalized)
4. Coronary angiography demonstrates severe ostial RCA disease with progression compared to pre-TAVR catheterization in 2023
5. Successful IVUS-guided PCI of the ostial RCA with placement of a 3.5x18 mm [place] FANY post-dilated ostially with a 3.75 mm NC balloon. There was significant recapitalization of her chest burning symptoms whenever flow was obstructive to
the RCA during the procedure
RECOMMENDATIONS
1. Triple therapy with ASA/Plavix/Eliquis for 1 week followed by Plavix/Eliquis for 6 months
2. Continue dialysis to target current dry weight as patient is euvolemic
3. Continued monitoring of TAVR gradients and PVL
Copy to: Dr. Pedro Garcia MD (filer and sander); Dr. Chadwick Grant DO (PCP)
Signed: Kip Rocha MD, PhD
[2024-12-25 12:15] LABS: ACT-LR - POC > 397 Seconds (116-155)
--- NOTE | 2024-12-25 13:12 | HPS.HSE ---
Family Physician
-
Family Physician: Chadwick Grant
Chief Complaint
-
Chest Pain / Shortness of Breath
History of Present Illness
Patient is an 84 y/o female past medical history of hypertension, hyperlipidemia, ESRD on HD due to polycystic kidney disease and aortic stenosis s/p TAVR who underwent a cardiac catheterization for shortness of breath and chest pain. Cardiac
catheterization revealed a 90% ostial stenosis of RCA and a drug eluting stent was placed. Patient will require overnight stay following intervention. Hospitalist group was asked to evaluate the patient and coordinate patient's dialysis.
Medical History
Past Medical History
Past Medical History: Reports Other
Additional Past Medical History:
Coronary Artery Disease
Paroxysmal Atrial Fibrillation
Pericardial Effusion s/p Pericardia Window
Essential Hypertension
Hyperlipidemia
ESRD on HD
Polycystic Kidney Disease
Autoimmune Thyroiditis / Hypothyroidism
Polycystic Kidney Disease
Past Surgical History: Reports Other
Additional Past Surgical History:
TAVR
RUE AV Graft
Appendectomy
Cholecystectomy
Hysterectomy
Social History
Tobacco: Former Smoker (Quit in 1987)
Alcohol: Occasional
Family History
Family History: Not pertinent
Allergies / Home Medications
Allergies reflects when Allergies were last updated in [facility].
Home Medications with original date entered in [facility]
Allergy/Medication List:
Allergies
Allergy/AdvReac Type Severity Reaction Status Date / Time
amlodipine Allergy Unknown upset Verified 11/22/24 08:06
stomach
Home Medications
atorvastatin 10 mg tablet 10 mg PO HS High Cholesterol 02/09/24
levothyroxine 125 mcg tablet (Synthroid) 125 mcg PO DAILY Thyroid 02/09/24
loperamide 2 mg capsule 2 mg PO Q4H PRN stomach issues 02/09/24
lorazepam 0.5 mg tablet 0.5 mg PO DAILY PRN anxeity 03/19/24
Vitamin D3 1 tab PO DAILY supplement ##0 03/30/24
sucroferric oxyhydroxide 500 mg chewable tablet (Velphoro) 500 mg PO TID renal supplement #0 tabs 03/30/24
apixaban 2.5 mg tablet (Eliquis) 2.5 mg PO BID 11/22/24
carvedilol 25 mg tablet 25 mg PO BID 11/22/24
clonidine HCl 0.1 mg tablet 0.1 mg PO BID 11/22/24
valsartan 160 mg tablet 160 mg PO BID 11/22/24
allopurinol 100 mg tablet 50 mg (1/2 x 100 mg) PO DAILY #1 tab 12/25/24
aspirin 81 mg chewable tablet 81 mg PO DAILY Anti-Inflammatory #1 tab 12/25/24
clopidogrel 75 mg tablet 75 mg PO DAILY #90 tabs 12/25/24
pantoprazole 40 mg tablet,delayed release 40 mg PO DAILY #90 tabs 12/25/24
Review of Systems
-
History Source: Patient
A 12 point ROS was completed and negative except as noted: Yes
Constitutional: Denies Fever or Chills
Respiratory: Denies Cough or Trouble Breathing
Cardiac: Reports Chest Pain; Denies Palpitations
Abdomen/GI: Denies Abdominal Pain, Nausea, Vomiting, Diarrhea or Constipated
Physical Exam
Vital Signs
Vital Signs
Temp Pulse BP Pulse Ox
97.7 F 64 165/64 95
12/25/24 07:26 12/25/24 12:30 12/25/24 12:17 12/25/24 12:30
Physical Exam
General: Comfortable and Conversant
HEENT: Anicteric and Moist mucous membranes
Respiratory: Clear and Non Labored Respirations
Cardiac: S1/S2 and Regular Rhythm
GI: Soft and Non Tender
Rectal: Deferred by Provider
Musculoskeletal: No Clubbing, No Cyanosis, No Edema and Other (RUE AV Graft)
Skin: Warm and Dry
Neuro: Awake, Alert, Oriented and Nonfocal/grossly intact
Psych: Calm
Data Reviewed
-
Old Records: Reviewed
Impression/Plan
-
Coronary Artery Disease
-RCA stent placed on December 25
-Plan for triple therapy with aspirin, Plavix and Eliquis for one week then transition to Plavix/Eliquis
ESRD on HD MoWeFr
-Consult Nephrology for HD
Paroxysmal Atrial Fibrillation
-Continue Eliquis for anticoagulation
-Continue Coreg for rate control
Essential Hypertension
-continue Coreg, Clonidine and Valsartan
Hyperlipidemia
-Continue Atorvastatin
Autoimmune Thyroiditis / Hypothyroidism
-Continue levothyroxine
Hx Pericardial Effusion s/p Pericardial Window
DVT proph: Eliquis
Code Status: Full Code
--- NOTE | 2024-12-25 13:15 | W.PN.UPDATE ---
Update Note
Progress Note Update
Patient was independently examined and I agree with H&P written on the same day. In addition: 89yo F with ESRD s/p cardiac cath on observation overnight for HD in AM.
- Nephrology consult
We spent at least 57min admitting the patient
--- NOTE | 2024-12-25 15:11 | W.CON.NEPH ---
Consultation
-
Date/Time Consultation Requested: 12/25/2024 2 PM
Date/Time Consultation Performed: 12/25/2024 3 PM
Requesting Provider: Dr. Gutierrez
Performing Provider: Dr. Quan
Reason for Consultation: ESRD
Medical History
-
Chief Complaint: TAVR
History of Present Illness:
This is a an 84-year-old female who has polycystic kidney disease resulting in end-stage renal disease in 2022. This apparently occurred during a pericardial window hospitalization. Since then she has tolerated dialysis without issue, dialyzing
via a right upper extremity AV graft. She does state that she typically dialyzes 3 and half hours and that her ultrafiltration is typically around 2 or 2-1/2 kg. Any more than that and she does develop cramping. She was admitted back in March
2023 for TAVR which she underwent without complication. She done fairly well until the recent development of shortness of breath and chest pain which prompted cardiac catheterization today which found a culprit RCA lesion which was stented. We are
asked to assist with management of her ESRD. Her blood pressures have remained stable on a multidrug regimen. Her hyperlipidemia is controlled with statin therapy as well as her hypothyroidism on Synthroid therapy.
Past Medical History
ADPKD, gout, hypertension, hypothyroidism, hyperphosphatemia, aortic stenosis, TAVR, paroxysmal atrial fibrillation, irritable bowel, diverticulosis, pericardial effusion with pericardial window, autoimmune thyroiditis, pyelonephritis, polycystic
liver, right upper extremity AV graft, appendectomy, cholecystectomy, hysterectomy, TAVR
Social History
Tobacco: Former Smoker
Alcohol: None
Family History
Multiple members with polycystic kidney disease including her brother and nearly all of her children/nieces/nephews
Allergies / Home Medications
Allergy/AdvReac Type Severity Reaction Status Date / Time
amlodipine Allergy Unknown upset Verified 11/22/24 08:06
stomach
�Medication �Instructions �Recorded �Confirmed �Type
atorvastatin 10 mg tablet 10 mg PO HS High Cholesterol 02/09/24 12/25/24 History
levothyroxine 125 mcg tablet 125 mcg PO DAILY Thyroid 02/09/24 12/25/24 History
(Synthroid)
loperamide 2 mg capsule 2 mg PO Q4H PRN stomach issues 02/09/24 12/25/24 History
lorazepam 0.5 mg tablet 0.5 mg PO DAILY PRN anxeity 03/19/24 12/25/24 History
Vitamin D3 1 tab PO DAILY supplement ##0 03/30/24 12/25/24 Rx
sucroferric oxyhydroxide 500 mg 500 mg PO TID renal supplement #0 03/30/24 12/25/24 Rx
chewable tablet (Velphoro) tabs
apixaban 2.5 mg tablet (Eliquis) 2.5 mg PO BID 11/22/24 12/25/24 History
carvedilol 25 mg tablet 25 mg PO BID 11/22/24 12/25/24 History
clonidine HCl 0.1 mg tablet 0.1 mg PO BID 11/22/24 12/25/24 History
valsartan 160 mg tablet 160 mg PO BID 11/22/24 12/25/24 History
allopurinol 100 mg tablet 50 mg (1/2 x 100 mg) PO DAILY #1 12/25/24 12/25/24 Rx
tab
aspirin 81 mg chewable tablet 81 mg PO DAILY Anti-Inflammatory 12/25/24 12/25/24 Rx
#1 tab
clopidogrel 75 mg tablet 75 mg PO DAILY #90 tabs 12/25/24 Rx
pantoprazole 40 mg tablet,delayed 40 mg PO DAILY #90 tabs 12/25/24 Rx
release
Review of Systems
-
No current chest pain or shortness of breath
All other systems: Negative unless noted
Physical Exam
Vital Signs
Vital Signs
Temp Pulse BP Pulse Ox
97.7 F 64 157/45 93
12/25/24 07:26 12/25/24 15:00 12/25/24 15:00 12/25/24 15:05
Lab Results
Laboratory Tests
03/20/24 03/30/24
12:15 07:47
Hgb 11.6 L 10.4 L
Potassium 4.5 4.7
Creatinine 5.1 H*
Physical Exam
Patient is awake alert oriented and in no distress. Mood and affect were pleasant, insight and judgment were good. Pupils are equal round and reactive to light, extraocular movements are intact, sclera were anicteric. Hearing was normal, ears and
nose are intact. Oropharynx was clear. Neck was supple with trachea midline and no thyromegaly. Heart was regular rate and rhythm without rubs. Lower extremities without edema. Lungs were clear to auscultation bilaterally and with normal
excursion. Abdomen was soft, nontender, with normal active bowel sounds, and no hepatosplenomegaly. Skin was without rash and with normal turgor. AV graft right upper arm good thrill and bruit
Data Reviewed
-
Medical Tests (Nuc Med, Echo etc): Image Personally Visualized and interpreted (EKG 12/25/2024 by my reading is normal sinus rhythm first-degree AV block left axis deviation) and Report Reviewed by me (Catheterization report reviewed 12/25/2024)
Labs: Labs Reviewed by me
Old Records: Reviewed
Assessment/Plan
-
Assessment
ADPKD
ESRD
TAVR 2023
P A-fib
Hypothyroidism
Gout
Chest pain shortness of breath status post cardiac catheterization RCA stent
Plan
We will plan for dialysis tomorrow morning per her usual schedule
Outpatient medications including phosphate binders may all be continued from a renal perspective
Check potassium
--- NOTE | 2024-12-25 16:31 | CM ---
Reviewed chart. Met with Mrs. Whitmore to review discharge plans. She states prior to admission she resides alone in a first floor apartment without any steps to enter. She states prior to admission she was independent with ambulation and adls.
She states she has DME from her spouse but she is currently not using any DME. She states she has a prescription plan. She states she goes to outpatient dialysis at [facility] on Tuesday, Tuesday and Tuesday at 9:15 a.m. She states her
daughters drive her. She states she has one daughter that resides close by and one daughter in [place], on son in [place] and one son in [place]. She states she has has [facility] in the past. The discharge plan is to return
home with resumption of outpatient dialysis when medically stable.
[2024-12-25] MEDS: DIOVAN 160 MG PO (20:00)
[2024-12-25] MEDS: COREG 25 MG PO (20:00)
[2024-12-25] MEDS: CATAPRES 0.1 MG PO (20:00)
[2024-12-25] MEDS: ELIQUIS 2.5 MG PO (21:04)
[2024-12-25] MEDS: LIPITOR 10 MG PO (21:05)
--- NOTE | 2024-12-25 23:25 | PTCARENOTE ---
Received patient at change of shift. SR on the monitor, HR in the 70s. R groin with some oozing on the dressing, drainage marked. No complaints from pt at this time, call elizabeth within reach.
[2024-12-26] VITALS (24 sets, daily range): BP systolic 112–166; BP diastolic 40–99
[2024-12-26] MEDS: SYNTHROID 125 MCG PO (05:12)
[2024-12-26 08:08] LABS: Hematocrit 27.8 % (37.0-47.0); Hemoglobin 9.1 g/dL (12.0-16.0); Mean Corp Hgb Conc. 32.7 g/dL (33.0-37.0); Mean Corpuscular Hgb 32.6 pg (27.0-31.0); Mean Corpuscular Volume 99.6 fL (81.0-99.0); Mean Platelet Volume 10.7 fL (7.4-10.4); Platelet Count 102 10^3/uL (130-400); Red Blood Cell Count 2.79 10^6/uL (4.20-5.40); Red Cell Dist. Width 14.1 % (11.5-14.5); White Blood Cell Count 7.3 10^3/uL (4.8-10.8)
--- NOTE | 2024-12-26 08:11 | W.PN.HOSP.TC ---
Today's Communication/Plan
-
Discharge today
Assessment / Plan
Assessment / Plan
Physical Exam
General: Not in acute distress
HEENT: Normocephalic. Moist mucous membranes
Respiratory: Clear to Auscultation Bilaterally
Cardiac: S1/S2 and Regular Rhythm
GI: Soft and Non Tender. Positive bowel sounds.
Musculoskeletal: No Cyanosis, No Edema and Other (RUE AV Graft)
Skin: Warm and Dry
Neuro: Awake, Alert, Oriented and Nonfocal/grossly intact
Psych: Calm
Assessment/Plan
84 y/o female past medical history of hypertension, hyperlipidemia, ESRD on HD due to polycystic kidney disease and aortic stenosis s/p TAVR who underwent a cardiac catheterization for shortness of breath and chest pain. Cardiac catheterization
revealed a 90% ostial stenosis of RCA and a drug eluting stent was placed. Patient needed overnight stay following intervention. Hospitalist group was asked to evaluate the patient and coordinate patient's dialysis.
Coronary Artery Disease
-RCA stent placed on December 25
-I confirmed (on 12/26/24), via [employer] communication with proof press operator Dr. Kip Rocha, that patient's final discharge medication regimen should be: 1) Triple therapy with ASA/Plavix/Eliquis for 1 week followed by Plavix/Eliquis for 6
months; 2) Coreg 25 BID; 3) Clonidine 0.1 mg PO BID; 4) Valsartan 160 mg BID; 5) Increase her Lipitor from 40 mg HS (increase from 10 mg HS)
ESRD on HD MoWeFr
-Consult Nephrology for HD
Paroxysmal Atrial Fibrillation
-Continue Eliquis for anticoagulation
-Continue Coreg for rate control
Essential Hypertension
-continue Coreg, Clonidine and Valsartan
Hyperlipidemia
-Continue Atorvastatin
Autoimmune Thyroiditis / Hypothyroidism
-Continue levothyroxine
History of Pericardial Effusion s/p Pericardial Window
Macular degeneration
Retinal artery occlusion
-Patient has been getting eye injections with anesthesiologist attending Dr. Larry Perla
-Per discussion between cardiology and Dr. Larry Perla, Dr. Larry Perla is comfortable with patient continuing her recommended anticoagulation/antiplatelet regimen without modification (i.e., there is no need to interrupt or change therapy before or
after injection procedures).
DVT Prophylaxis: Eliquis
Code Status: Full Code
More than 30 minutes spent in discharge including
Final examination of the patient
Summarizing hospital stay
Instructions for continuing care to all relevant caregivers
Preparation of discharge records, prescriptions, and referral forms
Total time spent (in minutes): 38
Anticipated Discharge: Today
Subjective/Interval History
-
Date of Service: December 26, 2024
Patient was seen and examined. She was getting dialysis and denied any chest pain or shortness of breath or any other complaints. She said she would like to go home today.
Objective Data
-
Labs:
Laboratory Results
12/26/24
07:32
WBC 7.3
Hgb 9.1 L
Hct 27.8 L
Plt Count 102 L
Sodium Pending
Potassium Pending
Chloride Pending
Carbon Dioxide Pending
BUN Pending
Creatinine Pending
Glucose Pending
Calcium Pending
Vital Signs:
Vital Signs
Temp Pulse Resp BP Pulse Ox
97.8 F 68 18 166/76 100
12/26/24 07:17 12/26/24 07:17 12/26/24 07:17 12/26/24 05:00 12/26/24 07:17
I&O
12/25/24 12/26/24 12/27/24
06:59 06:59 06:59
Intake Total 240 / 240
Balance 240 / 240
[2024-12-26] MEDS: ELIQUIS 2.5 MG PO (08:18)
[2024-12-26] MEDS: LOW STRENGTH ASPIRIN 81 MG PO (08:18)
[2024-12-26] MEDS: PROTONIX 40 MG PO (08:18)
[2024-12-26] MEDS: PLAVIX 75 MG PO (08:18)
[2024-12-26 09:11] LABS: Blood Urea Nitrogen 44 mg/dl (7-17); Calcium 8.1 mg/dl (8.4-10.2); Carbon Dioxide 22 mmol/L (22-30); Chloride 106 mmol/L (98-107); Estimated Creatinine Clearance 7 ml/min; Glucose 90 mg/dl (70-99); HDL Cholesterol 33 mg/dl; LDL Cholesterol, Calculated 34 mg/dl; Potassium 4.4 mmol/L (3.5-5.1); Sodium 138 mmol/L (135-145); Total Cholesterol 80 mg/dl (50-199); Triglyceride 69 mg/dl (10-149); Very Low Density Lipoprotein 13 mg/dl (0-30); eGFR 6.97
[2024-12-26] MEDS: MANNITOL 25% 12.5 GRAMS IV (09:35)
[2024-12-26] MEDS: RETACRIT 10000 UNITS IV (09:42)
--- NOTE | 2024-12-26 10:19 | W.PN.UPDATE ---
Update Note
Progress Note Update
Spoke with patient's process camera operator Dr. Larry Perla. She is undergoing eye injections with him for treatment of macular degeneration and retinal artery occlusion. Per our discussion, he is comfortable with her continuing her recommended
anticoagulation/antiplatelet regimen without modification (i.e., there is no need to interrupt or change therapy before or after injection procedures). He states bleeding risk for his procedure is low and can be managed with caudery if needed.
[2024-12-26] MEDS: FLEXBUMIN 25% FOR HEMODIALYSIS 12.5 GRAMS IV (10:45)
--- NOTE | 2024-12-26 11:11 | CM ---
Reviewed chart. Met with Mrs. Whitmore to review discharge plans. She was getting dialysis. Prior to admission alone in a first floor apartment without any steps to enter. Prior to admission she was independent with ambulation and adls. She has a
prescription plan and uses [facility]. She goes to outpatient dialysis at [facility] on Tuesday, Tuesday and Tuesday at 9:15 a.m. Her daughters provide transportation to outpatient dialysis [facility]. The discharge plan is to return home with resumption of outpatient dialysis when medically stable.
--- NOTE | 2024-12-26 11:13 | W.PN.NEPH.HD ---
Assessment
-
Seen on dialysis tolerating treatment ultrafiltration 1.5 L
Progress Note - Hemodialysis
-
Date of Service: December 26, 2024
Duration: 30 minutes and 3 hours
Potassium Bath: 2
Calcium Bath: 2.5
Opti-Dialyzer: 160
Ultrafiltration: EDW (70kg)
Blood Flow: 400
Dialysate Flow: 600
EPO: 10,000
[2024-12-26] MEDS: COREG 25 MG PO (12:41)
[2024-12-26] MEDS: DIOVAN 160 MG PO (12:41)
[2024-12-26] MEDS: CATAPRES PO (12:45)
--- NOTE | 2024-12-26 14:57 | W.DCSUMMARY ---
Discharge Summary
Discharge Data
Date of Admission: 12/25/24
Date of Discharge: 12/26/24
Total time spent discharging patient (in min): 38
-
Pending Results: No
Hospital Course
84 y/o female with past medical history of hypertension, hyperlipidemia, ESRD on HD due to polycystic kidney disease and aortic stenosis s/p TAVR who underwent a cardiac catheterization for shortness of breath and chest pain. Cardiac catheterization
revealed a 90% ostial stenosis of RCA and a drug eluting stent was placed. Patient required overnight stay following intervention. Hospitalist group was asked to evaluate the patient and coordinate patient's dialysis. Nephrology was consulted for
patient's dialysis. Community Relations Officer Dr. Rocha spoke with patient's occupational safety specialist Dr. Lrary Perla -- patient is undergoing eye injections with him for treatment of macular degeneration and retinal artery occlusion -- occupational safety specialist Dr. Perla mentioned
that he is comfortable with her continuing her recommended anticoagulation/antiplatelet regimen without modification (i.e., there is no need to interrupt or change therapy before or after injection procedures) -- he stated bleeding risk for this
procedure is low and can be managed with cautery if needed. Patient received dialysis. I confirmed (on 12/26/24), via [place] Text communication with advanced registered nurse Dr. Kip Rocha, that patient's final discharge medication regimen should be: 1)
Triple therapy with ASA/Plavix/Eliquis for 1 week followed by Plavix/Eliquis for 6 months; 2) Coreg 25 BID; 3) Clonidine 0.1 mg PO BID; 4) Valsartan 160 mg BID; 5) Increase her Lipitor from 40 mg HS (increase from 10 mg HS). Patient was doing well
and stable for discharge.
Discharge Plan
-
Patient Disposition: Home (Routine Discharge)
Discharge Diagnosis/Procedures: Coronary Artery Disease
Angioplasty and stent to Right Coronary artery
End Stage Renal Disease on Hemodialysis on Mo
Paroxysmal Atrial Fibrillation
Essential Hypertension
Hyperlipidemia
Autoimmune Thyroiditis / Hypothyroidism
History of Pericardial Effusion status post Pericardial Window
Macular degeneration
Retinal artery occlusion
Condition: Good
Diet: Low Cholesterol, Low Sodium and Other diet
Additional Diets: FOLLOW A RENAL DIALYSIS DIET
Activity: As tolerated
Driving Restrictions: No driving for 24 hours
Other Services: Cardiac Rehab
Activity Restrictions/Additional Instructions:
Call to schedule outpatient Cardiac Rehab with [facility].
Stand Alone Forms: DC Instructions- Cath/EP Lab
Referrals:
Chadwick Grant DO [Family Provider, Family Practice] - in less than 1 week
Pedro Garcia MD [Active, Cardiology] - 04/25/25 1:40 pm
Additional Discharge Medication Instructions: You will take aspirin 81mg daily, plavix 75mg daily, and eliquis 2.5mg twice a day for 1 week. Then STOP aspirin, and remain on plavix/eliquis only.
STOP esomeprazole- it will interact with plavix- you will take protonix instead (cardiology team ordered this).
Atorvastatin has been increased to 40 mg HS and new, increased dose has been sent to your pharmacy.
Prescriptions:
New
clopidogrel 75 mg tablet
75 mg PO DAILY Qty: 90 3RF
pantoprazole 40 mg tablet,delayed release (DR/EC)
40 mg PO DAILY Qty: 90 3RF
Continued
loperamide 2 mg Capsule
2 mg PO Q4H PRN (Reason: stomach issues)
levothyroxine [Synthroid] 125 mcg Tablet
125 mcg PO DAILY
lorazepam 0.5 mg Tablet
0.5 mg PO DAILY PRN (Reason: anxeity)
Velphoro 500 mg Tablet,Chewable
500 mg PO TID Qty: 0 0RF
Vitamin D3
1 tab PO DAILY Qty: 0 0RF
carvedilol 25 mg Tablet
25 mg PO BID
clonidine HCl 0.1 mg Tablet
0.1 mg PO BID
valsartan 160 mg Tablet
160 mg PO BID
Eliquis 2.5 mg Tablet
2.5 mg PO BID
allopurinol 100 mg Tablet
50 mg PO DAILY Qty: 1 0RF
aspirin 81 mg Tablet,Chewable
81 mg PO DAILY Qty: 1 0RF
Rx Instructions:
Take for 7 days post procedure, then STOP
Changed
atorvastatin 10 mg Tablet
40 mg PO HS Qty: 30 1RF
Discontinued
esomeprazole magnesium [Nexium] 20 mg Capsule,Delayed Release(Dr/Ec)
20 mg PO DAILY PRN (Reason: REFLUX)
Discharge Orders:
Discharge Patient (As Directed); Ordered 12/26/24
Ordered By: Ajith Ralph
Care Plan Goals
Care Plan Goals:
Problem: Readiness for enhanced knowledge related to diagnosis and treatment plan
Goal: Understand your diagnosis and treatment plan needs, including medications if applicable.
Instructions: Know your diagnosis, underlying causes and treatment plan options, including medications if applicable. Consult with your health care team to learn about your diagnosis and treatment plan, including medications if applicable.
Discharge Date and Time
Discharge Date/Time: 12/26/24 15:15
Print Language: SERBIAN
--- NOTE | 2024-12-26 15:36 | PTCARENOTE ---
IV and tele removed. Discharge instructions reviewed w/ pt and verbalizes understanding. Belongings collected and sent home w/ pt. Escorted via WC and staff assist to home.
== END 2024-12-26 15:15 | disposition home or self-care (01) ==
LOC: CATH 07:04
PROVIDERS: Nurse Practitioner; ATTENDING PHYSICIAN Hospitalist; CONSULT PHYSICIAN Specialist; FAMILY PHYSICIAN Family Medicine; OTHER PHYSICIAN Internal Medicine Cardiovascular Disease; OTHER PHYSICIAN Student in an Organized Health Care Education/Training Program
DX: I25.10 Atherosclerotic heart disease of native coronary artery without angina pectoris (principal); R06.02 Shortness of breath; R07.9 Chest pain, unspecified; Z95.5 Presence of coronary angioplasty implant and graft; I48.0 Paroxysmal atrial fibrillation; I50.9 Heart failure, unspecified; I13.2 Hypertensive heart and chronic kidney disease with heart failure and with stage 5 chronic kidney disease, or end stage renal disease; E78.5 Hyperlipidemia, unspecified; E06.3 Autoimmune thyroiditis; Z87.891 Personal history of nicotine dependence; Z88.8 Allergy status to other drugs, medicaments and biological substances; Z79.899 Other long term (current) drug therapy; Z79.890 Hormone replacement therapy; Z79.01 Long term (current) use of anticoagulants; Z79.82 Long term (current) use of aspirin; Z79.02 Long term (current) use of antithrombotics/antiplatelets
CPT/HCPCS: 99152; 99153; 92978; 80048; 80061; 85027; 85347; 93005; 93460; C1725; C1753; C1760; C1769; C1874; C1887; C1894; C9600; G0257; P9047; Q5106; Q9967